=== PATIENT | male | born 1955 | race Caucasian/White ===

== ENCOUNTER 2017-11-10 16:11 | Inpatient (IN) | payer MEDICARE, MEDICAID ==
--- NOTE | 2017-11-10 17:53 | EDM.PDOC ---
ED HPI GENERAL MEDICAL PROBLEM - General Stated Complaint: STOMACH PAIN; FLU LIKE SYMPTOMS Time Seen by Provider: 11/10/17 16:15 Source of Information: Reports: Patient History Limitations: Reports: No Limitations - History of Present Illness INITIAL COMMENTS - FREE TEXT/NARRATIVE: Pt was brought into the emergency room by [facility] today. 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 Last night he was gassy and bloated and had complained of pain in his lower chest and upper abdomen. He did feel like vomiting by did not vomit. In the morning today around 7:37 Am he was running a temp of 101.1F received tylenol 500mg and his temperature came down to 99F. Towards noon he started having fever of 101F again and tylenol 500mg for given, and patient went to sleep. He has been having chest congestion and rattling when he breaths since today afternoon, and seems to have got worse as the day passed by, hence ambulance was called. In the emergency room, pt does appear anxious and having coarse breaths. His SPO2 is 94 % on room air. He does c/o abdominal pain and shortness of breath. Onset: Today Onset Date: 11/10/17 Onset Time: 07:30 Duration: Getting Worse Location: Reports: Chest, Abdomen Quality: Reports: Ache Severity: Moderate Improves with: Reports: None Worsens with: Reports: None Associated Symptoms: Denies: Confusion, Chest Pain, Cough, Fever/Chills, Nausea/ Vomiting, Rash, Seizure, Shortness of Breath, Syncope, Weakness - Related Data Allergies Allergy/AdvReac Type Severity Reaction Status Date / Time Penicillins Allergy Cannot Verified 06/16/15 19:07 Remember Home Meds: Home Meds Baclofen [Baclofen] 10 mg PO QID 06/16/15 [History] Omeprazole [Omeprazole] 20 mg PO DAILY 06/16/15 [History] Sennosides/Docusate Sodium [Senna Laxative Tablet] 1 each PO BID 06/16/15 [ History] Sulfamethoxazole/Trimethoprim [Septra DS] 1 tab PO DAILY 06/16/15 [History] Warfarin [Coumadin] 1 mg PO ASDIRECTED 06/16/15 [History] Past Medical History Other Genitourinary History: Frequency and Urgency Other Musculoskeletal History: Quadriplegic d/t brain stem CVA Social & Family History - Tobacco Use Smoking Status *Q: Former Smoker Years of Tobacco use: 26 Used Tobacco, but Quit: Yes Month Tobacco Last Used: 2001 Second Hand Smoke Exposure: No - Recreational Drug Use Recreational Drug Use: No ED ROS GENERAL - Review of Systems Review Of Systems: See Below Constitutional: Reports: Fever, Chills, Malaise. Denies: Diaphoresis, Decreased Appetite HEENT: Denies: Ear Discharge, Rhinitis, Throat Pain, Throat Swelling Respiratory: Reports: Shortness of Breath, Cough. Denies: Wheezing, Pleuritic Chest Pain, Sputum Cardiovascular: Denies: Chest Pain, Lightheadedness GI/Abdominal: Reports: Abdominal Pain. Denies: Constipation, Diarrhea, Nausea, Vomiting : Denies: Flank Pain, Urgency, Urinary Retention Musculoskeletal: Denies: Shoulder Pain, Arm Pain, Back Pain, Joint Pain, Joint Swelling Skin: Denies: Pruritis, Rash, Erythema, Wound Neurological: Reports: Pre-Existing Deficit (Quadripleia). Denies: Dizziness, Headache, Syncope, Weakness Psychiatric: Reports: Anxiety. Denies: Agitation, Confusion, Depression ED EXAM, GENERAL - Physical Exam Exam: See Below Exam Limited By: No Limitations General Appearance: Alert, WD/WN, Anxious Eye Exam: Bilateral Eye: EOMI, PERRL Ears: Normal External Exam, Normal Canal, Hearing Grossly Normal, Normal TMs Ear Exam: Bilateral Ear: Auricle Normal, Canal Normal, TM normal Nose: Normal Inspection, Normal Mucosa, No Blood Throat/Mouth: Normal Inspection, Normal Lips, Normal Teeth, Normal Gums, Normal Oropharynx, Normal Voice, No Airway Compromise Head: Atraumatic, Normocephalic Neck: Normal Inspection, Supple, Non-Tender, Full Range of Motion Respiratory/Chest: Crackles (all over lung marshall caorse appears like upper airway sounds). No: No Respiratory Distress, No Accessory Muscle Use, Chest Non -Tender Cardiovascular: Normal Peripheral Pulses, Regular Rate, Rhythm, No Edema, No Gallop, No JVD, No Murmur, No Rub GI/Abdominal: Soft, No Organomegaly, No Distention, No Abnormal Bruit, No Mass, Tender (all over abdomen and periumbilical), Abnormal Bowel Sounds (hypoactive) . No: Rigid, Rebound Back Exam: Normal Inspection Extremities: Normal Inspection, Normal Range of Motion Neurological: Alert, Oriented, Sensory/Motor Deficit (HAs Flaccid quadriplegia preexisting) Psychiatric: Anxious EKG INTERPRETATION EKG Date: 11/10/17 [place]: Normal P-Wave: Present QRS: Normal ST-T: Normal QT: Normal EKG Interpretation Comments: Sinus tachycardia Course - Vital Signs Text/Narrative:: Pt in the emergency room appears very anxious, he is having coarse breath sounds which is more of his upper airway secretion. His SPO2 is 94 % on room air. He is febrile with temp of 99.8F. On clinical exam he does have diffuse tenderness over the abdomen and complains of waxing and waning pain. His EKG is is sinus tachycardia. His CBC shows elevated white count of 19K. His CMP is normal. His BNP is normal. His troponin is negative. His Lactic acid is normal.Blood culture drawn.His chest X-ray one view shows infiltrate in the lower lobe. CT abdomen and chest done, shows right lower lobe pneumonia with possible pancreatitis. his Lipase was drawn and is elevated at 4540. I have discussed findings with patient and his sister, who is here with him. HE does have pneumonia with acute pancreatitis.He needs to be admitted for inpatient care. Pt agrees to it. I have started him on IV bolus of NS 1000cc now followed by NS at 125cc/hr. Also will start him on levaquin 500mg Iv daily for his right lower lobe pneumonia as he has just finished his azithromycin about 1 wk ago. Will give him IV morphine 4mg every 6 hrs as needed for his acute abdominal pain. Will closely monitor patient. will repeat his BMP and lipase in am. - Orders/Labs/Meds Orders: Active Orders 24 hr Category Date Time Status Patient Status [ADT] Routine ADT 11/10/17 18:57 Ordered Bedrest Bedside Commode [RC] ASDIRECTED Care 11/10/17 18:56 Ordered EKG Documentation Completion [RC] ASDIRECTED Care 11/10/17 16:45 Active Height and Weight [RC] UPON Care 11/10/17 18:56 Ordered Intake and Output [RC] QSHIFT Care 11/10/17 18:58 Ordered Oxygen Therapy [RC] PRN Care 11/10/17 18:57 Ordered Pulse Oximetry [RC] CONTINUOUS Care 11/10/17 18:59 Ordered VTE/DVT Education [RC] Per Unit Routine Care 11/10/17 18:57 Ordered Vital Signs [RC] Q4H Care 11/10/17 18:57 Ordered Nothing per Oral Now Diet [DIET] Diet 11/10/17 Dinner Ordered Chest 1V Frontal [CR] Stat Exams 11/10/17 16:45 Taken Chest Abdomen Pelvis wo Cont [CT] Stat Exams 11/10/17 16:46 Taken BASIC METABOLIC PANEL,BMP [CHEM] Routine Lab 11/11/17 07:30 Ordered CBC WITH AUTO DIFF [HEME] Routine Lab 11/11/17 07:30 Ordered CULTURE BLOOD [BC] Stat Lab 11/10/17 17:35 Received LORazepam [Ativan] Med 11/10/17 19:09 Ordered 0.5 mg IVPUSH Q6H PRN Levofloxacin/Dextrose 5%-Water [Levaquin in D5W 500 MG/ Med 11/10/17 19:15 Ordered 100 ML] 500 mg Premix Bag 1 bag IV Q24H Morphine Med 11/10/17 18:56 Ordered 2 mg IV Q4H PRN Ondansetron [Zofran] Med 11/10/17 18:56 Ordered 4 mg IV Q6H PRN Pantoprazole [ProTONIX IV] Med 11/10/17 19:00 Ordered 40 mg IV Q24H Sodium Chloride 0.9% @ 125 MLS/HR (1000ml) Med 11/10/17 19:15 Ordered Sodium Chloride 0.9% [Normal Saline] 1,000 ml IV ASDIRECTED Sodium Chloride 0.9% [Normal Saline] 1,000 ml Med 11/10/17 19:00 Ordered IV ASDIRECTED Sodium Chloride 0.9% [Saline Flush] Med 11/10/17 18:56 Ordered 10 ml FLUSH ASDIRECTED PRN Peripheral IV Insertion Adult [OM.PC] Routine Oth 11/10/17 18:56 Ordered Resuscitation Status Routine Resus Stat 11/10/17 18:56 Ordered Medication Orders Sodium Chloride (Normal Saline) 1,000 mls @ 1,000 mls/hr IV ASDIRECTED WALDEMAR Levofloxacin/Dextrose 500 mg/ (Premix) 100 mls @ 100 mls/hr IV Q24H WALDEMAR Sodium Chloride (Normal Saline) 1,000 mls @ 125 mls/hr IV ASDIRECTED WALDEMAR Lorazepam (Ativan) 0.5 mg IVPUSH Q6H PRN PRN Reason: Anxiety Morphine Sulfate (Morphine) 2 mg IV Q4H PRN PRN Reason: Pain (severe 7-10) Ondansetron HCl (Zofran) 4 mg IV Q6H PRN PRN Reason: Nausea/Vomiting Pantoprazole Sodium (Protonix Iv) 40 mg IV Q24H WALDEMAR Sodium Chloride (Saline Flush) 10 ml FLUSH ASDIRECTED PRN PRN Reason: Keep Vein Open Labs: Laboratory Tests 11/10/17 11/10/17 11/10/17 Range/Units 16:50 16:50 16:50 WBC 19.9 H D (4.0-11.0) K/uL RBC 5.40 (4.50-6.50) M/uL Hgb 15.3 (13.0-18.0) g/dL Hct 47.0 (40.0-54.0) % MCV 87 (76-96) fL MCH 28.3 (27.0-32.0) pg MCHC 32.6 (31.0-35.0) g/dL RDW 14.6 (11.0-16.0) % Plt Count 316 (150-400) K/uL MPV 10.1 H (6.0-10.0) fL Neut % (Auto) 73.4 H (45.0-70.0) % Lymph % (Auto) 10.1 L (20.0-40.0) % [place] % (Auto) 16.1 H (3.0-10.0) % Eos % (Auto) 0.2 L (1.0-5.0) % Baso % (Auto) 0.2 (0.0-0.5) % Neut # (Auto) 14.64 H (2.00-7.50) K/uL Lymph # (Auto) 2.02 (1.50-4.00) K/uL [place] # (Auto) 3.21 H (0.20-0.80) K/uL Eos # (Auto) 0.03 L (0.04-0.40) K/uL Baso # (Auto) 0.03 (0.02-0.10) K/uL PT (9.0-11.5) sec INR (1.0-3.5) APTT (27.0-35.0) SECONDS Sodium 140 (136-145) mmol/L Potassium 4.1 (3.5-5.1) mmol/L Chloride 101 (98-107) mmol/L Carbon Dioxide 31.0 (21.0-32.0) mmol/L Anion Gap 12.1 (5.0-15.0) mmol/L BUN 8 (8-26) mg/dL Creatinine 0.84 D (0.70-1.30) mg/dL Est Cr Clr Drug Dosing TNP Estimated GFR (MDRD) > 60 (>60) MLS/MIN BUN/Creatinine Ratio 9.5 (6-25) Glucose 114 H (74-100) mg/dL Lactic Acid (0.90-1.70) mmol/L Calcium 9.4 (8.5-10.1) mg/dL Total Bilirubin 0.8 D (0.0-1.0) mg/dL AST 27 (15-37) U/L ALT 35 (12-78) U/L Alkaline Phosphatase 136 H (46-116) U/L Troponin I < 0.017 (0.000-0.060) ng/mL B-Natriuretic Peptide (0-125) pg/mL Total Protein 8.6 H (6.4-8.2) g/dL Albumin 3.2 L (3.4-5.0) g/dL Globulin 5.4 H (2.2-4.2) g/dL Albumin/Globulin Ratio 0.6 L (0.8-2.0) Lipase (73-393) U/L Urine Color Urine Appearance (CLEAR) Urine pH (5.0-8.0) Ur Specific [place] (1.003-1.030) Urine Protein (NEGATIVE) mg/dL Urine Glucose (UA) (NEGATIVE) mg/dL Urine Ketones (NEGATIVE) mg/dL Urine Occult Blood (NEGATIVE) Urine Nitrite (NEGATIVE) Urine Bilirubin (NEGATIVE) Urine Urobilinogen (0.2-1.0) E.U./dL Ur Leukocyte Esterase (NEGATIVE) Urine RBC /HPF Urine WBC /HPF Amorphous Sediment /HPF 11/10/17 11/10/17 11/10/17 Range/Units 16:50 16:50 16:50 WBC (4.0-11.0) K/uL RBC (4.50-6.50) M/uL Hgb (13.0-18.0) g/dL Hct (40.0-54.0) % MCV (76-96) fL MCH (27.0-32.0) pg MCHC (31.0-35.0) g/dL RDW (11.0-16.0) % Plt Count (150-400) K/uL MPV (6.0-10.0) fL Neut % (Auto) (45.0-70.0) % Lymph % (Auto) (20.0-40.0) % [place] % (Auto) (3.0-10.0) % Eos % (Auto) (1.0-5.0) % Baso % (Auto) (0.0-0.5) % Neut # (Auto) (2.00-7.50) K/uL Lymph # (Auto) (1.50-4.00) K/uL [place] # (Auto) (0.20-0.80) K/uL Eos # (Auto) (0.04-0.40) K/uL Baso # (Auto) (0.02-0.10) K/uL PT 27.9 H D (9.0-11.5) sec INR 2.9 D (1.0-3.5) APTT 47.4 H (27.0-35.0) SECONDS Sodium (136-145) mmol/L Potassium (3.5-5.1) mmol/L Chloride (98-107) mmol/L Carbon Dioxide (21.0-32.0) mmol/L Anion Gap (5.0-15.0) mmol/L BUN (8-26) mg/dL Creatinine (0.70-1.30) mg/dL Est Cr Clr Drug Dosing Estimated GFR (MDRD) (>60) MLS/MIN BUN/Creatinine Ratio (6-25) Glucose (74-100) mg/dL Lactic Acid (0.90-1.70) mmol/L Calcium (8.5-10.1) mg/dL Total Bilirubin (0.0-1.0) mg/dL AST (15-37) U/L ALT (12-78) U/L Alkaline Phosphatase (46-116) U/L Troponin I (0.000-0.060) ng/mL B-Natriuretic Peptide 98 (0-125) pg/mL Total Protein (6.4-8.2) g/dL Albumin (3.4-5.0) g/dL Globulin (2.2-4.2) g/dL Albumin/Globulin Ratio (0.8-2.0) Lipase 4540 H* (73-393) U/L Urine Color Urine Appearance (CLEAR) Urine pH (5.0-8.0) Ur Specific [place] (1.003-1.030) Urine Protein (NEGATIVE) mg/dL Urine Glucose (UA) (NEGATIVE) mg/dL Urine Ketones (NEGATIVE) mg/dL Urine Occult Blood (NEGATIVE) Urine Nitrite (NEGATIVE) Urine Bilirubin (NEGATIVE) Urine Urobilinogen (0.2-1.0) E.U./dL Ur Leukocyte Esterase (NEGATIVE) Urine RBC /HPF Urine WBC /HPF Amorphous Sediment /HPF 11/10/17 11/10/17 Range/Units 17:35 17:47 WBC (4.0-11.0) K/uL RBC (4.50-6.50) M/uL Hgb (13.0-18.0) g/dL Hct (40.0-54.0) % MCV (76-96) fL MCH (27.0-32.0) pg MCHC (31.0-35.0) g/dL RDW (11.0-16.0) % Plt Count (150-400) K/uL MPV (6.0-10.0) fL Neut % (Auto) (45.0-70.0) % Lymph % (Auto) (20.0-40.0) % [place] % (Auto) (3.0-10.0) % Eos % (Auto) (1.0-5.0) % Baso % (Auto) (0.0-0.5) % Neut # (Auto) (2.00-7.50) K/uL Lymph # (Auto) (1.50-4.00) K/uL [place] # (Auto) (0.20-0.80) K/uL Eos # (Auto) (0.04-0.40) K/uL Baso # (Auto) (0.02-0.10) K/uL PT (9.0-11.5) sec INR (1.0-3.5) APTT (27.0-35.0) SECONDS Sodium (136-145) mmol/L Potassium (3.5-5.1) mmol/L Chloride (98-107) mmol/L Carbon Dioxide (21.0-32.0) mmol/L Anion Gap (5.0-15.0) mmol/L BUN (8-26) mg/dL Creatinine (0.70-1.30) mg/dL Est Cr Clr Drug Dosing Estimated GFR (MDRD) (>60) MLS/MIN BUN/Creatinine Ratio (6-25) Glucose (74-100) mg/dL Lactic Acid 1.75 H (0.90-1.70) mmol/L Calcium (8.5-10.1) mg/dL Total Bilirubin (0.0-1.0) mg/dL AST (15-37) U/L ALT (12-78) U/L Alkaline Phosphatase (46-116) U/L Troponin I (0.000-0.060) ng/mL B-Natriuretic Peptide (0-125) pg/mL Total Protein (6.4-8.2) g/dL Albumin (3.4-5.0) g/dL Globulin (2.2-4.2) g/dL Albumin/Globulin Ratio (0.8-2.0) Lipase (73-393) U/L Urine Color Yellow Urine Appearance Slightly cloudy (CLEAR) Urine pH 8.5 H (5.0-8.0) Ur Specific [place] 1.015 (1.003-1.030) Urine Protein Negative (NEGATIVE) mg/dL Urine Glucose (UA) Negative (NEGATIVE) mg/dL Urine Ketones Negative (NEGATIVE) mg/dL Urine Occult Blood Small H (NEGATIVE) Urine Nitrite Negative (NEGATIVE) Urine Bilirubin Negative (NEGATIVE) Urine Urobilinogen 0.2 (0.2-1.0) E.U./dL Ur Leukocyte Esterase Negative (NEGATIVE) Urine RBC 5-10 H /HPF Urine WBC Not seen /HPF Amorphous Sediment Moderate /HPF Meds: Medications Generic Name Dose Route Start Last Admin Trade Name Freq PRN Reason Stop Dose Admin Sodium Chloride 1,000 mls @ 1,000 mls/hr 11/10/17 19:00 Normal Saline IV ASDIRECTED WALDEMAR Levofloxacin/Dextrose 500 mg/ 100 mls @ 100 mls/hr 11/10/17 19:15 Premix IV Q24H WALDEMAR Sodium Chloride 1,000 mls @ 125 mls/hr 11/10/17 19:15 Normal Saline IV ASDIRECTED WALDEMAR Lorazepam 0.5 mg 11/10/17 19:09 Ativan IVPUSH Q6H PRN Anxiety Morphine Sulfate 2 mg 11/10/17 18:56 Morphine IV Q4H PRN Pain (severe 7-10) Ondansetron HCl 4 mg 11/10/17 18:56 Zofran IV Q6H PRN Nausea/Vomiting Pantoprazole Sodium 40 mg 11/10/17 19:00 Protonix Iv IV Q24H WALDEMAR Sodium Chloride 10 ml 11/10/17 18:56 Saline Flush FLUSH ASDIRECTED PRN Keep Vein Open Departure - Departure Time of Disposition: 21:00 Disposition: Admitted As Inpatient 67 Condition: Fair Clinical Impression: Right lower lobe pneumonia, Pancreatitis - Discharge Information Referrals: PCP,None [Primary Care Provider] - - Problem List & Annotations (1) Right lower lobe pneumonia SNOMED Code(s): 008340760 Code(s): J18.1 - LOBAR PNEUMONIA, UNSPECIFIED ORGANISM Status: Acute Current Visit: Yes (2) Pancreatitis SNOMED Code(s): 65371845 Code(s): K85.90 - ACUTE PANCREATITIS WITHOUT NECROSIS OR INFECTION, UNSP Status: Acute Current Visit: Yes - Problem List Review Problem List Initiated/Reviewed/Updated: Yes - My Orders Last 24 Hours: My Active Orders 11/10/17 16:45 EKG Documentation Completion [RC] ASDIRECTED Chest 1V Frontal [CR] Stat 11/10/17 16:46 Chest Abdomen Pelvis wo Cont [CT] Stat 11/10/17 17:35 CULTURE BLOOD [BC] Stat 11/10/17 18:56 Bedrest Bedside Commode [RC] ASDIRECTED Height and Weight [RC] UPON Morphine 2 mg IV Q4H PRN Ondansetron [Zofran] 4 mg IV Q6H PRN Sodium Chloride 0.9% [Saline Flush] 10 ml FLUSH ASDIRECTED PRN Peripheral IV Insertion Adult [OM.PC] Routine Resuscitation Status Routine 11/10/17 18:57 Patient Status [ADT] Routine Oxygen Therapy [RC] PRN VTE/DVT Education [RC] Per Unit Routine Vital Signs [RC] Q4H 11/10/17 18:58 Intake and Output [RC] QSHIFT 11/10/17 18:59 Pulse Oximetry [RC] CONTINUOUS 11/10/17 19:00 Pantoprazole [ProTONIX IV] 40 mg IV Q24H Sodium Chloride 0.9% [Normal Saline] 1,000 ml IV ASDIRECTED 11/10/17 19:09 LORazepam [Ativan] 0.5 mg IVPUSH Q6H PRN 11/10/17 19:15 Levofloxacin/Dextrose 5%-Water [Levaquin in D5W 500 MG/100 ML] 500 mg Premix Bag 1 bag IV Q24H Sodium Chloride 0.9% @ 125 MLS/HR (1000ml) Sodium Chloride 0.9% [Normal Saline] 1,000 ml IV ASDIRECTED 11/10/17 Dinner Nothing per Oral Now Diet [DIET] 11/11/17 07:30 BASIC METABOLIC PANEL,BMP [CHEM] Routine CBC WITH AUTO DIFF [HEME] Routine - Assessment/Plan Last 24 Hours: My Active Orders 11/10/17 16:45 EKG Documentation Completion [RC] ASDIRECTED Chest 1V Frontal [CR] Stat 11/10/17 16:46 Chest Abdomen Pelvis wo Cont [CT] Stat 11/10/17 17:35 CULTURE BLOOD [BC] Stat 11/10/17 18:56 Bedrest Bedside Commode [RC] ASDIRECTED Height and Weight [RC] UPON Morphine 2 mg IV Q4H PRN Ondansetron [Zofran] 4 mg IV Q6H PRN Sodium Chloride 0.9% [Saline Flush] 10 ml FLUSH ASDIRECTED PRN Peripheral IV Insertion Adult [OM.PC] Routine Resuscitation Status Routine 11/10/17 18:57 Patient Status [ADT] Routine Oxygen Therapy [RC] PRN VTE/DVT Education [RC] Per Unit Routine Vital Signs [RC] Q4H 11/10/17 18:58 Intake and Output [RC] QSHIFT 11/10/17 18:59 Pulse Oximetry [RC] CONTINUOUS 11/10/17 19:00 Pantoprazole [ProTONIX IV] 40 mg IV Q24H Sodium Chloride 0.9% [Normal Saline] 1,000 ml IV ASDIRECTED 11/10/17 19:09 LORazepam [Ativan] 0.5 mg IVPUSH Q6H PRN 11/10/17 19:15 Levofloxacin/Dextrose 5%-Water [Levaquin in D5W 500 MG/100 ML] 500 mg Premix Bag 1 bag IV Q24H Sodium Chloride 0.9% @ 125 MLS/HR (1000ml) Sodium Chloride 0.9% [Normal Saline] 1,000 ml IV ASDIRECTED 11/10/17 Dinner Nothing per Oral Now Diet [DIET] 11/11/17 07:30 BASIC METABOLIC PANEL,BMP [CHEM] Routine CBC WITH AUTO DIFF [HEME] Routine Assessment:: Right lower lobe pneumonia Acute pancreatitis Plan: Pt in the emergency room appears very anxious, he is having coarse breath sounds which is more of his upper airway secretion. His SPO2 is 94 % on room air. He is febrile with temp of 99.8F. On clinical exam he does have diffuse tenderness over the abdomen and complains of waxing and waning pain. His EKG is is sinus tachycardia. His CBC shows elevated white count of 19K. His CMP is normal. His BNP is normal. His troponin is negative. His Lactic acid is normal.Blood culture drawn.His chest X-ray one view shows infiltrate in the lower lobe. CT abdomen and chest done, shows right lower lobe pneumonia with possible pancreatitis. his Lipase was drawn and is elevated is 4540. I have discussed findings with patient and his sister, who is here with him. HE does have pneumonia with acute pancreatitis.He needs to be admitted for inpatient care. Pt agrees to it. I have started him on IV bolus of NS 1000cc now followed by NS at 125cc/hr. Also will start him on levaquin 500mg Iv daily for his right lower lobe pneumonia as he has just finished his azithromycin about 1 wk ago. Will give him IV morphine 4mg every 6 hrs as needed for his acute abdominal pain. Will closely monitor patient. will repeat his BMP and lipase in am.
[2017-11-10] MEDS ORDERED: Ondansetron 4 MG/2 ML SDV IV PRN (18:56)
[2017-11-10] MEDS ORDERED: Sodium Chloride 0.9% 10 ML Syringe FLUSH PRN (18:56)
[2017-11-10] MEDS ORDERED: Pantoprazole 40 MG Vial IV SCH (19:00)
[2017-11-10] MEDS ORDERED: Sodium Chloride 0.9% 1,000 ML IV SCH ×2 (19:00→19:15)
[2017-11-10] MEDS ORDERED: LORazepam 2 MG/ML MDV IVPUSH PRN (19:09)
[2017-11-10] MEDS ORDERED: Levofloxacin/Dextrose 5%-Water 500 MG in Premix Bag 1 BAG IV SCH (19:15)
[2017-11-10] MEDS ORDERED: Azithromycin 500 MG in Sodium Chloride 0.9% 250 ML IV SCH (20:00)
[2017-11-11] MEDS: Morphine 2 MG/ML Syringe IV PRN ×2 (02:36→05:57)
[2017-11-11] MEDS ORDERED: LORazepam 2 MG/ML MDV IVPUSH ONE (04:04)
--- NOTE | 2017-11-11 08:24 | CR ---
DATE OF SERVICE: 11/10/17 CLINICAL DATA: SOB AP PORTABLE CHEST: Comparison is made to a prior exam dated 07/30/15. The patient has taken a very poor inspiration. The heart size is normal. There are calcifications of the aortic arch. There are densities in both lower lungs consistent with basilar atelectasis or infiltrate. Pneumonia should be considered. There is blunting of both costophrenic angles, consistent with bilateral pleural effusions. The exam is otherwise unchanged from the prior. [id number] [facility]
--- NOTE | 2017-11-11 08:35 | CT ---
DATE OF SERVICE: 11/10/17 CLINICAL DATA: Abdominal pain, SOB UNENHANCED CHEST CT: Multi slice acquisition through the chest without IV contrast was performed. Comparison is made to an unenhanced chest CT dated 07/25/2016. Breathing motion artifact significantly degrades image quality. There is atelectasis in both lower lungs with areas of consolidation in both lung bases, right greater than left. Pneumonia should be considered. No pleural effusions. No pneumothorax. The heart size is normal. No pericardial effusion. No hilar or mediastinal adenopathy. No other significant findings. IMPRESSION: Areas of consolidation in both lung bases, right greater than left. Pneumonia should be considered. UNENHANCED ABDOMEN AND PELVIC CT: Multislice acquisition through the abdomen and pelvis without IV or oral contrast was performed. No priors. Breathing motion artifact degrades image quality. The unenhanced liver appears normal. There are multiple gallstones noted within the gallbladder. No pericholecystic fluid. The spleen appears normal. The pancreas is normal size. There is however mild peripancreatic fat stranding , suggesting the possibility of early or mild pancreatitis. No evidence of pancreatic mass. No abnormal fluid collections. The right and left adrenals appear normal. The right and left kidneys appear normal. No nephrocalcinosis or nephrolithiasis. No hydronephrosis or hydroureter. The bladder is partially fluid filled. There are a couple of foci of hyperdensity in the dependent bladder. These are nonspecific in appearance. The bladder is otherwise unremarkable. The appendix is not dilated. No evidence of appendicitis. There is a moderate amount of stool present throughout the colon. There is mild diverticulosis of the descending and sigmoid colon. No evidence of diverticulitis. No free air. No free fluid. No dilated loops of bowel. No adenopathy. No aortic aneurysm. IMPRESSION: 1) Cholelithiasis. 2) Mild peripancreatic fat standing. The possibility of early or mild pancreatic should be considered. 3) Hyperdensities in the dependent urinary bladder. These are nonspecific in appearance. Urologic consultation is recommended [id number] [facility]
[2017-11-11] MEDS ORDERED: LORazepam 2 MG/ML MDV IVPUSH SCH ×3 (09:00→21:30)
[2017-11-11] MEDS ORDERED: metroNIDAZOLE/Normal Saline 500 MG in Premix Bag 1 BAG IV SCH (10:00)
--- NOTE | 2017-11-11 10:59 | PCM.DCSUM1 ---
Discharge Summary - Hospital Course Free Text/Narrative:: Pt was admitted last night with diagnosis of RLL pneumonia with gall stone pancreatic. His Initial CBC was 19.9 and his Lipase was 4540. His EKG was in sinus tachy. His CMP is normal. Troponin negative, normal BNP. Pt was maintaining his SPO2 on room air. Apparently he was admitted for Both treatment with IV antibiotics for his possible acute RLL pneumonia and Management of Pancreatitis. Pt did recieve bolus on 1 litre NS followed by NS art 125cc/hr.Pt was not aggressively hydrated as he is quadriplegic and small stature. i have increased the Iv to 150 /hr today. Pt did have morning labs today. His CBC shows white count is elevated at 28.6 and his neutrophils at 74% unchanged. His lipase is down from 4540 to 1342 today.his BMP is stable and calcium is normal at 9.4 He has had good urine output of 420cc. Pt has got slightly tachypnec with increased work of breathing , his respiratory rate is around 20-24/minutes and is using 2 litres of NC O2 to maintain his sats at 94%. Also he has abdominal breathing, which his resident caregiver says is normal for him. His chest xray portable is unchanged from yesterday. Pt's vitals are stable other than his tachypnea and increased work of breathing. My only concern is his pulmonary reserve with his quadriplegia, his CBC has been repeated within 8hrs of his first dose of azithromycin which might be the cause of still elevated white count, but his repeat lactic 0.65. Pt refuses levaquin and rocephin. I have stated him on flagyl today for anaerobic cover. I have called [facility], and there is no available inpatient bed. 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 he does agree to accept patient. i have discussed the plan with patient, he does agree with the plan.Pt will be transferred by ALS ambulance today to [facility]. Further care per Dr. Reynolds. Brief History: kindly See H&P - Discharge Data Discharge Date: 11/11/17 Discharge Disposition: Admitted As Inpatient 67 Condition: Good - Discharge Diagnosis/Problem(s) (1) Right lower lobe pneumonia SNOMED Code(s): 837294022 ICD Code: J18.1 - LOBAR PNEUMONIA, UNSPECIFIED ORGANISM Status: Acute Current Visit: Yes (2) Pancreatitis SNOMED Code(s): 96533866 ICD Code: K85.90 - ACUTE PANCREATITIS WITHOUT NECROSIS OR INFECTION, UNSP Status: Acute Current Visit: Yes - Patient Instructions Diet: NPO - Discharge Plan Home Medications: Home Meds Baclofen [Baclofen] 10 mg PO TID@0900,1200,1800 06/16/15 [History] Omeprazole [Omeprazole] 20 mg PO BID 06/16/15 [History] Warfarin [Coumadin] 2 mg PO MO@1800 06/16/15 [History] Azithromycin [Zithromax] 500 mg IV Q24H adv 11/11/17 [Rx] Baclofen 40 mg PO BEDTIME 11/11/17 [History] Calcium Carbonate [Calcium] 600 mg PO BID@0900,1800 11/11/17 [History] Cranberry Conc/C/Bacill Coag [Cranberry Tablet] 1 each PO DAILY@119911/11/17 [ History] Gabapentin [Neurontin] 600 mg PO DAILY@212911/11/17 [History] LORazepam 0.25 mg PO BID@0900,1200 11/11/17 [History] LORazepam 0.5 mg PO DAILY@1800 11/11/17 [History] LORazepam 1 mg PO DAILY@212911/11/17 [History] LORazepam [Ativan] 0.25 mg IVPUSH 0900,1200 vial 11/11/17 [Rx] LORazepam [Ativan] 0.5 mg IVPUSH 1800 vial 11/11/17 [Rx] LORazepam [Ativan] 1 mg IVPUSH 2129 vial 11/11/17 [Rx] Lactulose 1.5 tsp PO DAILY@0900 11/11/17 [History] Morphine 2 mg IV Q4H PRN syringe 11/11/17 [Rx] Ondansetron [Zofran] 4 mg IV Q6H PRN vial 11/11/17 [Rx] Pantoprazole [ProTONIX IV] 40 mg IV Q24H vial 11/11/17 [Rx] Sodium Chloride 0.9% [Normal Saline] 150 ml IV ASDIRECTED bag 11/11/17 [Rx] Sodium Chloride 0.9% [Saline Flush] 10 ml FLUSH ASDIRECTED PRN syringe [Rx] Warfarin [Coumadin] 1 mg PO FR@1800 11/11/17 [History] metroNIDAZOLE/Normal Saline [Flagyl 500 MG in NS 100 ML] 500 mg IV Q8H bag [Rx] Forms: ED Department Discharge Referrals: PCP,None [Primary Care Provider] - - General Info Date of Service: 11/11/17 - Review of Systems General: Denies: Fever, Weakness, Fatigue HEENT: Denies: Ear Pain, Sinus Congestion, Sore Throat Pulmonary: Reports: Shortness of Breath, Cough. Denies: Pleuritic Chest Pain, Sputum Cardiovascular: Denies: Chest Pain, Lightheadedness Gastrointestinal: Reports: Abdominal Pain. Denies: Diarrhea, Nausea, Vomiting Genitourinary: Denies: Burning, Urgency, Flank Pain Musculoskeletal: Denies: Joint Pain, Joint Swelling Skin: Denies: Cyanosis, Jaundice, Bruising, Pruritis, Rash Neurological: Denies: Confusion, Dizziness, Headache Psychiatric: Denies: Confusion, Depression - Patient Data Vitals - Most Recent: Last Vital Signs Temp 100.2 F 11/11/17 08:00 Pulse 122 H 11/11/17 08:00 Resp 20 11/11/17 08:00 BP 114/77 11/11/17 08:00 Pulse Ox 92 L 11/10/17 20:18 Weight - Most Recent: 63.231 kg I&O - Last 24 hours: Intake & Output 11/10/17 11/11/17 11/11/17 22:59 06:59 14:59 Intake Total 1460 Output Total 420 Balance 1040 Lab Results - Last 24 hrs: Laboratory Results - last 24 hr 11/11/17 11/11/17 11/11/17 Range/Units 07:20 07:30 07:30 WBC 28.6 H* D (4.0-11.0) K/uL RBC 4.92 (4.50-6.50) M/uL Hgb 13.9 (13.0-18.0) g/dL Hct 43.4 (40.0-54.0) % MCV 88 (76-96) fL MCH 28.3 (27.0-32.0) pg MCHC 32.0 (31.0-35.0) g/dL RDW 15.0 (11.0-16.0) % Plt Count 322 (150-400) K/uL MPV 10.9 H (6.0-10.0) fL Neut % (Auto) 74.8 H (45.0-70.0) % Lymph % (Auto) 11.6 L (20.0-40.0) % [place] % (Auto) 13.4 H (3.0-10.0) % Eos % (Auto) 0.0 L (1.0-5.0) % Baso % (Auto) 0.2 (0.0-0.5) % Neut # (Auto) 21.37 H (2.00-7.50) K/uL Lymph # (Auto) 3.30 (1.50-4.00) K/uL [place] # (Auto) 3.82 H (0.20-0.80) K/uL Eos # (Auto) 0.01 L (0.04-0.40) K/uL Baso # (Auto) 0.05 (0.02-0.10) K/uL Sodium 134 L (136-145) mmol/L Potassium 3.8 (3.5-5.1) mmol/L Chloride 102 (98-107) mmol/L Carbon Dioxide 29.5 (21.0-32.0) mmol/L Anion Gap 6.3 (5.0-15.0) mmol/L BUN 8 (8-26) mg/dL Creatinine 0.88 (0.70-1.30) mg/dL Est Cr Clr Drug Dosing TNP Estimated GFR (MDRD) > 60 (>60) MLS/MIN BUN/Creatinine Ratio 9.1 (6-25) Glucose 84 (74-100) mg/dL Lactic Acid (0.90-1.70) mmol/L Calcium 9.2 (8.5-10.1) mg/dL Lipase 1342 H* D (73-393) U/L 11/11/ Range/Units 10:20 WBC (4.0-11.0) K/uL RBC (4.50-6.50) M/uL Hgb (13.0-18.0) g/dL Hct (40.0-54.0) % MCV (76-96) fL MCH (27.0-32.0) pg MCHC (31.0-35.0) g/dL RDW (11.0-16.0) % Plt Count (150-400) K/uL MPV (6.0-10.0) fL Neut % (Auto) (45.0-70.0) % Lymph % (Auto) (20.0-40.0) % [place] % (Auto) (3.0-10.0) % Eos % (Auto) (1.0-5.0) % Baso % (Auto) (0.0-0.5) % Neut # (Auto) (2.00-7.50) K/uL Lymph # (Auto) (1.50-4.00) K/uL [place] # (Auto) (0.20-0.80) K/uL Eos # (Auto) (0.04-0.40) K/uL Baso # (Auto) (0.02-0.10) K/uL Sodium (136-145) mmol/L Potassium (3.5-5.1) mmol/L Chloride (98-107) mmol/L Carbon Dioxide (21.0-32.0) mmol/L Anion Gap (5.0-15.0) mmol/L BUN (8-26) mg/dL Creatinine (0.70-1.30) mg/dL Est Cr Clr Drug Dosing Estimated GFR (MDRD) (>60) MLS/MIN BUN/Creatinine Ratio (6-25) Glucose (74-100) mg/dL Lactic Acid 0.65 L (0.90-1.70) mmol/L Calcium (8.5-10.1) mg/dL Lipase (73-393) U/L Med Orders - Current: Current Medications Sodium Chloride (Normal Saline) 1,000 mls @ 1,000 mls/hr IV ASDIRECTED [place] Sodium Chloride (Normal Saline) 1,000 mls @ 125 mls/hr IV ASDIRECTED [place] Last Admin: 11/11/17 06:08 Dose: 125 mls/hr Azithromycin 500 mg/ Sodium (Chloride) 250 mls @ 250 mls/hr IV Q24H [place] Last Admin: 11/10/17 21:05 Dose: 250 mls/hr Metronidazole 500 mg/ Premix 100 mls @ 100 mls/hr IV Q8H [facility] Lorazepam (Ativan) 0.25 mg IVPUSH 0900,1200 [facility] Last Admin: 11/11/17 08:02 Dose: 0.25 mg Lorazepam (Ativan) 0.5 mg IVPUSH 1800 [place] Lorazepam (Ativan) 1 mg IVPUSH 2130 [place] Morphine Sulfate (Morphine) 2 mg IV Q4H PRN PRN Reason: Pain (severe 7-10) Last Admin: 11/11/17 05:57 Dose: 2 mg Ondansetron HCl (Zofran) 4 mg IV Q6H PRN PRN Reason: Nausea/Vomiting Last Admin: 11/10/17 20:55 Dose: 4 mg Pantoprazole Sodium (Protonix Iv) 40 mg IV Q24H [facility] Last Admin: 11/10/17 20:48 Dose: 40 mg Sodium Chloride (Saline Flush) 10 ml FLUSH ASDIRECTED PRN PRN Reason: Keep Vein Open Discontinued Medications Levofloxacin/Dextrose 500 mg/ (Premix) 100 mls @ 100 mls/hr IV Q24H [facility] Last Admin: 11/11/17 00:20 Dose: Not Given Lorazepam (Ativan) 0.5 mg IVPUSH Q6H PRN PRN Reason: Anxiety Last Admin: 11/10/17 23:12 Dose: 0.5 mg Lorazepam (Ativan) 1 mg IVPUSH ONETIME ONE Stop: 11/11/17 04:05 Last Admin: 11/11/17 04:16 Dose: 1 mg - Exam General: Reports: Alert, Oriented, Cooperative HEENT: Reports: Pupils Equal, Pupils Reactive, EOMI, Mucous Membr. Moist/[place] Neck: Reports: Supple Lungs: Reports: Decreased Breath Sounds (right base), Crackles, Rhonchi (right base), Other (Abdomino-thoracic breathing. Which is normal for patient, but rate has increased to 20-24/minute) Cardiovascular: Reports: Regular Rhythm, Tachycardia GI/Abdominal Exam: Distended, Guarding (periumbilical), Rigid, Tender, Abnormal Bowel Sounds (hypoactive). No: Rebound Back Exam: Reports: Normal Inspection, Full Range of Motion Extremities: Normal Inspection, Normal Range of Motion, Non-Tender, No Pedal Edema, Normal Capillary Refill Skin: Reports: Warm, Intact Neurological: Reports: Other (flaccid quadriplegia) Psy/Mental Status: Reports: Alert, Normal Affect, Normal Mood *Q Meaningful Use (DIS) - VTE *Q VTE Criteria *Q: - Stroke *Q Stroke Criteria *Q: - AMI *Q AMI Criteria *Q:
--- NOTE | 2017-11-11 12:09 | CR ---
DATE OF SERVICE: 11/11/2017 CLINICAL DATA: RLL pneumonia. AP PORTABLE CHEST: Comparison is made to a prior exam dated 11/10/2017. The patient has taken a very poor inspiration. The pulmonary vasculature appears more prominent than on the prior exam suggesting pulmonary venous congestion. There are densities in both lung bases consistent with basilar atelectasis or infiltrate, right greater than left. Pneumonia should be considered. The exam is otherwise unchanged from the prior. [id number] [facility]
[2017-11-11 13:42] VITALS: BP 128/78
== END 2017-11-11 12:45 | disposition critical access hospital (66) | DRG 193 ==
LOC: LB.ED 16:11 → LB.MS 18:57 → UNDOADMIN 19:00
PROVIDERS: ADMIT Family Medicine; ATTEND Family Medicine
DX: J18.1 Lobar pneumonia, unspecified organism (principal); K85.10 Biliary acute pancreatitis without necrosis or infection; G82.50 Quadriplegia, unspecified; I69.965 Other paralytic syndrome following unspecified cerebrovascular disease, bilateral; Z87.891 Personal history of nicotine dependence; Z66 Do not resuscitate; R06.02 Shortness of breath; R10.9 Unspecified abdominal pain; Z88.0 Allergy status to penicillin; Z79.01 Long term (current) use of anticoagulants
CPT/HCPCS: 36415; 71010; 71250; 74176; 80048; 80053; 81001; 83605; 83690; 83880; 84484; 85025; 85610; 85730; 87040; 93005; 96361; 96374; 96375; 99285-25; C9113; J0456; J2060; J2270; J2405; J7040; J7050